=== PATIENT | male | born 1975 | race Two or more races ===

== ENCOUNTER 2021-07-19 10:49 | Outpatient (CLI) | payer OTHER | END 2021-07-19 11:04 | disposition home or self-care (01) | LOC: MRI 10:49 | PROVIDERS: ATTEND Specialist | DX: M86.672 Other chronic osteomyelitis, left ankle and foot (principal); E11.621 Type 2 diabetes mellitus with foot ulcer | CPT/HCPCS: 73718 ==

== ENCOUNTER 2021-09-19 11:55 | Inpatient (IN) | payer OTHER ==
[~2021-09-19] VITALS: Ht 177.8 cm
[2021-09-19] MEDS ORDERED: SYNJARDY 12.5-1 EACH PO (12:42)
[2021-09-19] MEDS ORDERED: OZEMPIC0.25 MG/0. (12:42)
[2021-09-19] MEDS ORDERED: COZAAR25 MG PO (12:43)
[2021-09-19] MEDS ORDERED: NEURONTIN300 MG PO (12:43)
[2021-09-19] MEDS ORDERED: CRESTOR20 MG PO (12:43)
[2021-09-19] MEDS ORDERED: LEVOFLOXACIN250 MG PO (12:45)
--- NOTE | 2021-09-19 12:45 | NUR ---
SE RECIBE PACIENTE ALERTA Y ORIENTADO X3 QUIEN REFIERE QUE BEAU FUE A COMER COMIDA [place] Y EN LA NOCHE LE EDWAR NAUSEAS Y COMENZO A VOMITAR, ROBERTS SEGUIDO CON LOS VOMITOS HASTA HOY, REFIERE TENER HASTA 20 VOMITOS. PACIENTE REFIERE QUE HOY SE REALIZO UNOS LABORATORIOS, ESTOS ESTAN ALTERADOS. SE MONITOREAN S/V Y SE UBICA EN OBSERVACION.
--- NOTE | 2021-09-19 13:03 | NUR ---
PACIENTE EVALUADA POR . SE LE ORIENTA SOBRE TRATAMIENTO A SEGUIR. SE EXTRAE MUESTRAS DE LABORATORIO. SE ADMINISTRA MEDICAMNETO GABI ORDEN MEDICA. SE MANTIENE BAJO OBSERVACION POR CAMBIOS.
--- NOTE | 2021-09-19 21:14 | NUR ---
SE LLAMA A DEPTO DE SONOGRAFIA PARA SONO RENAL PENDIENTE. ADELAIDE INDICA ESTUDIO SE QUEDA PARA MANANA
[2021-09-21] MEDS ORDERED: DICLOFENAC SOD100 GM (14:41)
[2021-09-21] MEDS ORDERED: VIRT-CAPS SOFTGE1 MG (14:41)
== END 2021-09-21 18:13 | disposition home or self-care (01) | DRG 683 ==
LOC: ER 11:55 → MEDI 22:42
PROVIDERS: ADMIT Internal Medicine; ATTEND Internal Medicine
PROC: BT4JZZZ Ultrasonography of Kidneys and Bladder (ICD-10-PCS; principal; 2021-09-19)
DX: N17.8 Other acute kidney failure (principal); R65.10 Systemic inflammatory response syndrome (SIRS) of non-infectious origin without acute organ dysfunction; M86.672 Other chronic osteomyelitis, left ankle and foot; G62.9 Polyneuropathy, unspecified; I10 Essential (primary) hypertension; E11.9 Type 2 diabetes mellitus without complications; E78.5 Hyperlipidemia, unspecified; Z79.84 Long term (current) use of oral hypoglycemic drugs

== ENCOUNTER 2021-11-15 08:12 | Outpatient (CLI) | payer OTHER ==
[~2021-11-15 08:12] MED LIST: COZAAR25 MG PO; CRESTOR20 MG PO; DICLOFENAC SOD100 GM; LEVOFLOXACIN250 MG PO; NEURONTIN300 MG PO; OZEMPIC0.25 MG/0.; SYNJARDY 12.5-1 EACH PO; VIRT-CAPS SOFTGE1 MG
== END 2021-11-15 08:21 | disposition home or self-care (01) ==
LOC: SONOGRAMA 08:12
PROVIDERS: ATTEND Specialist
DX: M75.102 Unspecified rotator cuff tear or rupture of left shoulder, not specified as traumatic (principal)

== ENCOUNTER 2022-02-24 14:51 | Emergency (ER) | payer OTHER ==
[~2022-02-24] VITALS: Ht 177.8 cm; Wt 84.4 kg
== END 2022-02-24 18:16 | disposition home or self-care (01) ==
LOC: ER 14:51
DX: E86.0 Dehydration (principal); R11.2 Nausea with vomiting, unspecified; I10 Essential (primary) hypertension; E11.9 Type 2 diabetes mellitus without complications